=== PATIENT | female | born 1955 | race Caucasian/White ===

== ENCOUNTER 2018-05-04 11:59 | Inpatient (IN) | payer MEDICARE ==
[2018-05-04 15:04] LABS: #Eosinphils 0.1 thou/uL (0.0-0.7); #Lymphocytes 1.6 thou/uL (1.20-3.40); #Monocytes 0.4 thou/uL (0.11-0.59); #Neutrophils 3.3 thou/uL (1.40-6.50); %Basophils 0.6 % (0.0-1.0); %Eosinophils 2.7 % (0.0-10.0); %Lymphocytes 29.4 % (21.0-51.0); %Monocytes 6.9 % (0.0-10.0); %Neutrophils 60.4 % (42.0-75.0); Hemoglobin 11.6 g/dL (12.0-16.0); Mean Corpuscular HGB CONC 33.1 g/dL (32.0-36.0); Mean Corpuscular Hemoglobin 30.6 pg (27.0-31.0); Mean Corpuscular Volume 92.5 fL (78.0-98.0); Mean Platelet Volume 6.5 fL (7.4-10.4); Platelet Count 271 thou/uL (130-400); RBC Distribution Width 12.4 % (11.5-14.5); Red Blood Cell (RBC) Count 3.79 mill/uL (4.20-5.40); White Blood Cell (WBC) Count 5.5 thou/uL (4.8-10.8)
[2018-05-04 15:10] LABS: PTT 27.1 SEC (22.9-36.1); Prothrombin Time 13.3 SEC (12.0-14.7)
--- NOTE | 2018-05-04 15:24 | ULT ---
LEFT LOWER EXTREMITY VENOUS DUPLEX EXAM: Date: 05/04/18 HISTORY: Left leg pain and edema. FINDINGS: Real-time color Doppler evaluation of the left lower extremity was performed from groin to calf. This includes evaluation of the common femoral, superficial and profunda femoral, saphenous, popliteal, a nd posterior tibial veins. This shows some nonocclusive thrombus within the superficial femoral vein in the thigh and incomplete compressibility of the popliteal vein. Flow was not definitely demonstrat ed in the posterior tibial veins. This may have been just related to the calf edema compressing these veins. IMPRESSION: Evidence of deep venous thrombosis with nonocclusive thrombus in the thigh and popliteal region. POS: [facility]
[2018-05-04 15:28] LABS: ALT (SGPT) 17 U/L (8-55); AST (SGOT) 18 U/L (5-34); Albumin 4.3 g/dL (3.4-4.8); Alkaline Phosphatase 68 U/L (40-150); Anion Gap 12 mmol/L (10-20); BUN (Urea Nitrogen) 19 mg/dL (9.8-20.1); Bilirubin, Total 0.4 mg/dL (0.2-1.2); Calc. Creatinine Clearance 0 mL/min (70-130); Calcium 9.5 mg/dL (7.8-10.44); Carbon Dioxide 27 mmol/L (23-31); Chloride 108 mmol/L (98-107); Estimated GFR-MDRD 67; Globulin 2.4 g/dL (2.4-3.5); Glucose 91 mg/dL (80-115); Potassium 4.1 mmol/L (3.5-5.1); Protein, Total 6.7 g/dL (6.0-8.3); Sodium 143 mmol/L (136-145)
[2018-05-04] MEDS ORDERED: Enoxaparin Sodium 80 MG/0.8 ML SYRINGE ONE (18:31)
[2018-05-04] MEDS ORDERED: Acetaminophen 325 MG TAB PO PRN (19:49)
[2018-05-04 20:09] VITALS: BMI 28.0
[2018-05-04] MEDS ORDERED: Temazepam 15 MG CAP PO PRN (20:53)
[2018-05-04] MEDS ORDERED: Acetaminophen 500 MG TAB PO PRN (20:53)
[2018-05-04] MEDS ORDERED: Ondansetron PF 4 MG/2 ML Vial IVP PRN (20:53)
[2018-05-04] MEDS ORDERED: Senokot S 8.6-50 MG TAB PO PRN (20:53)
[2018-05-04] MEDS ORDERED: hydrALAZINE 20 MG/ML VIAL SLOW IVP PRN (20:53)
[2018-05-04] MEDS ORDERED: Ondansetron ODT 4 MG TAB PO PRN (20:53)
[2018-05-04] MEDS: Docusate 100 MG CAP PO SCH (22:00)
[2018-05-04] MEDS: Famotidine 20 MG TAB PO SCH (22:00)
--- NOTE | 2018-05-05 00:40 | HP ---
PRIMARY CARE PROVIDER: Dr. Salazar Robertson. CHIEF COMPLAINT: Left leg swelling. HISTORY OF PRESENT ILLNESS: This is a 63-year-old female, who presents to [facility], complaining of left leg and knee swelling over the last 72 hours. The patient states no specific trauma or injury, but pain in the thigh and behind the knee. The patient with significant history of multiple sclerosis with limited mobility, worsening in the last several months. The history is obtained after discussions with the patient's at the bedside, who provides the majority of the history. The patient has previously received physical therapy, but has not for several months with minimal mobility and mainly sitting at home. The patient also noted with increasing stiffness of her left lower extremity, needing assistance for standing or short distance ambulation. The patient has had a previous deep venous thrombosis of the left lower extremity, on Eliquis 5 mg b.i.d. since 2016. reports no specific fall or direct injury or recent travel history. The patient denies any specific shortness of breath, fever, chills, or cough. The patient denies any blood in the stool or hematuria. reports the patient has been compliant with all of her chronic medication regimen. Her chronic medications including Eliquis twice daily. In the emergency room, the patient underwent general evaluation including Doppler imaging of the left lower extremity showing nonocclusive thrombus in the thigh and popliteal region. The patient received Lovenox subcutaneously and was referred to the hospitalist service for evaluation. PAST MEDICAL HISTORY: 1. Multiple sclerosis with limited mobility. 2. History of DVT in the left lower extremity with chronic anticoagulation with Eliquis. 3. History of rectal prolapse. 4. Anxiety. PAST SURGICAL HISTORY: Status post laparoscopic sacral rectopexy. CURRENT MEDICATIONS: 1. Eliquis 5 mg p.o. b.i.d. 2. Sertraline. 3. Myrbetriq. 4. Colace. A complete medication list will need to be obtained from the family. ALLERGIES: NO KNOWN DRUG ALLERGIES. FAMILY HISTORY: No inheritable diseases per family report. SOCIAL HISTORY: The patient is , accompanied by her and son in the emergency department. No current alcohol, tobacco, or illicit drug use. Ambulates with standby/contact guard assistance with rolling walker with fall risk precautions. REVIEW OF SYSTEMS: CONSTITUTIONAL: Negative for weight loss or gain, ability to conduct usual activities. SKIN: Negative for rash, itching. EYES: Negative for double vision, pain. ENT/MOUTH: Negative for nose bleeding, neck stiffness, pain, tenderness. CARDIOVASCULAR: Negative for palpitations, dyspnea on exertion, orthopnea. RESPIRATORY: Negative for shortness of breath, wheezing, cough, hemoptysis, fever or night sweats. GASTROINTESTINAL: Negative for poor appetite, abdominal pain, heartburn, nausea, vomiting, constipation, or diarrhea. GENITOURINARY: Negative for urgency, frequency, dysuria, nocturia. MUSCULOSKELETAL: Negative for pain, swelling. NEUROLOGIC/PSYCHIATRIC: Negative for anxiety, depression. ALLERGY/IMMUNOLOGIC: Negative for skin rash, bleeding tendency. Otherwise negative except as stated per HPI. PHYSICAL EXAMINATION: VITAL SIGNS: On admission, blood pressure 153/83, pulse 78, respiratory rate 17, temperature 98 degrees Fahrenheit, O2 saturation 99% on room air. GENERAL APPEARANCE: This is a 63-year-old female, smiling, alert, responds to questions, in no acute distress. HEENT: Pupils are equal, round, reactive to light and accommodation. Extraocular muscles are intact. No scleral icterus. No conjunctival injection. Nares patent. OP is clear. Teeth in fair repair. NECK: Supple. No cervical adenopathy. No thyromegaly. No carotid bruits. No JVD appreciated. Cervical spine with full active and passive range of motion. No meningeal signs noted. CHEST: Lungs are clear to auscultation bilaterally. CARDIOVASCULAR: S1 and S2 without noted murmur, rub, or gallop. ABDOMEN: Rounded, soft, nontender, and nondistended. Bowel sounds are positive in all 4 quadrants. There is no hepatosplenomegaly. No abdominal bruits. No rebound or guarding appreciated. EXTREMITIES: Left lower extremity with edema to the proximal thigh, mid thigh, peripatellar region and tibial region. Positive pitting edema below the knee. Mild tenderness to palpation in the popliteal region. Pulses palpable distally at the dorsalis pedis, posterior tibial, and popliteal arteries bilaterally. Contractures noted with sustained plantar flexion of the left ankle. Right lower extremity moves freely on command. NEUROLOGIC: Cranial nerves 2 through 12 are grossly intact. Please see under musculoskeletal for the rest of the neuro exam. The patient is not observed ambulatory during this exam. PERTINENT LAB AND X-RAY FINDINGS: Complete metabolic profile within normal limits. PT 13.3, INR 1.0, PTT 27.1. CBC showed a white blood cell count of 5.5, hemoglobin 12, hematocrit 35, platelet count 271 with normal differential. Left lower extremity vascular ultrasound dated 05/04/2018 showed nonocclusive thrombus in the superficial femoral and popliteal vein. ASSESSMENT AND PLAN: 1. Acute left lower extremity deep venous thrombosis. The patient will be admitted to the medical floor. The patient with apparent Eliquis failure with recurrent deep venous thrombosis of the left lower extremity. We will continue Lovenox 1 mg/kg subcutaneously q.12 hours. Consult Hematology Service for evaluation given apparent Eliquis failure. Check stool guaiac. Suspect the patient's presentation also consistent with limited mobility in the context of multiple sclerosis. 2. Multiple sclerosis. Limited mobility as stated previously. We will confirm home medication regimen and monitor clinically. We will obtain Physical Therapy consult for functional assessment. 3. Chronic anticoagulation. We will consult Hematology Service for recommendations regarding choice of anticoagulation in the context of an apparent Eliquis failure. Serial CBC monitoring. Check stool guaiacs. 4. Anxiety. Confirm home antianxiety medication regimen. Restoril 15 mg p.o. at bedtime. 5. Prophylaxis. SCDs held due to an acute deep venous thrombosis of the left lower extremity. Pepcid 20 mg p.o. b.i.d. Physical Therapy assessment for functional ability in the a.m.. CODE STATUS: Full. Surrogate medical decision maker is the patient's . Job ID: [id number]
[2018-05-05 08:03] LABS: Anion Gap 14 mmol/L (10-20); BUN (Urea Nitrogen) 13 mg/dL (9.8-20.1); Calc. Creatinine Clearance 93 mL/min (70-130); Calcium 8.9 mg/dL (7.8-10.44); Carbon Dioxide 22 mmol/L (23-31); Chloride 110 mmol/L (98-107); Estimated GFR-MDRD 72; Glucose 100 mg/dL (80-115); Sodium 142 mmol/L (136-145)
[2018-05-05 08:25] LABS: Band 1 % (5-11); Eosinophils 3 % (0-10); Hemoglobin 11.1 g/dL (12.0-16.0); Lymphocytes 19 % (21-51); MDiff Complete? YES; Mean Corpuscular HGB CONC 32.7 g/dL (32.0-36.0); Mean Corpuscular Hemoglobin 29.9 pg (27.0-31.0); Mean Corpuscular Volume 91.3 fL (78.0-98.0); Mean Platelet Volume 6.4 fL (7.4-10.4); Monocytes 8 % (0-10); Neutrophil 69 % (42-75); Platelet Count 276 thou/uL (130-400); RBC Distribution Width 12.3 % (11.5-14.5); Red Blood Cell (RBC) Count 3.71 mill/uL (4.20-5.40); White Blood Cell (WBC) Count 4.5 thou/uL (4.8-10.8)
[2018-05-05] MEDS: Famotidine 20 MG TAB PO SCH ×2 (08:46→21:40)
[2018-05-05] MEDS: Docusate 100 MG CAP PO SCH ×2 (08:46→21:39)
[2018-05-05] MEDS: Enoxaparin Sodium 80 MG/0.8 ML SYRINGE SC SCH ×2 (08:55→21:40)
--- NOTE | 2018-05-05 11:28 | PDOC.PN ---
- Subjective Encounter Start Date: 05/05/18 Encounter Start Time: 11:25 Subjective: f/u for acute LLE DVT tx currently with Lovenox. Apparently failed therapy -: with Eliquis. Some LLE pain but tolerable. - Objective Resuscitation Status - Order Detail: 05/04/18 17:20 Resuscitation Status Routine Resuscitation Status: FULL: Full Resuscitation MAR Reviewed: Yes Vital Signs & Weight: Vital Signs (12 hours) Temp Pulse Resp BP Pulse Ox 05/05/18 08:53 98.1 F 85 18 167/76 H 96 05/05/18 04:00 98.1 F 107 H 18 139/82 95 Weight Weight 184 lb 11.958 oz I&O: 05/04/18 05/05/18 05/06/18 06:59 06:59 06:59 Intake Total 100 Balance 100 Result Diagrams: 05/05/18 07:22 05/05/18 07:22 Additional Labs: Laboratory Tests 05/04/18 14:50 Hgb 11.6 L Phys Exam - Physical Examination Constitutional: NAD HEENT: PERRLA, sclera anicteric, oral pharynx no lesions Neck: no nodes, no JVD, supple, full ROM Respiratory: no wheezing, no rales, no rhonchi, clear to auscultation bilateral S1, S2 Cardiovascular: RRR, no significant murmur, no rub, gallop Gastrointestinal: soft, non-tender, no distention, positive bowel sounds LLE edema Musculoskeletal: pulses present Neurological: normal sensation, moves all 4 limbs Psychiatric: A&O x 3 Skin: normal turgor, cap refill <2 seconds Dx/Plan (1) Deep vein thrombosis (DVT) of left lower extremity Code(s): I82.402 - ACUTE EMBOLISM AND THOMBOS UNSP DEEP VEINS OF L LOW EXTREM Status: Acute Qualifiers: Affected thrombotic vein of extremity: femoral Chronicity: acute Qualified Code(s): I82.412 - Acute embolism and thrombosis of left femoral vein Comment: Continue Lovenox 80mg sc BID, consult Hematology regarding apparent Eliquis failure, pain control, elevate LLE (2) Multiple sclerosis Code(s): G35 - MULTIPLE SCLEROSIS Status: Chronic (3) Chronic anticoagulation Code(s): Z79.01 - PECAN SHELLER (CURRENT) USE OF ANTICOAGULANTS Status: Chronic Comment: See above, continue Lovenox acutely, Hematology consult pending, stool hemoccult pending (4) Anxiety Code(s): F41.9 - ANXIETY DISORDER, UNSPECIFIED Status: Chronic Comment: Resume Sertraline - Plan plan discussed w/ family, foster care social worker Stable currently -: Continue Lovenox 80mg sc BID -: Hematology consult pending -: Stool hemoccult pending -: Rehab screening * AM lab: H/H with plt
--- NOTE | 2018-05-05 15:37 | CON ---
DATE OF CONSULTATION: REASON FOR CONSULT: DVT. HISTORY OF PRESENT ILLNESS: Ms. Rothman is a pleasant 63-year-old female with a history of multiple sclerosis and immobility, who was originally diagnosed with a DVT of the left lower extremity in October of 2015. She has been taking Eliquis 5 mg b.i.d. since that time and has seen Dr. Jimenez in the past. She is managed by Dr. Robertson. She has been in her usual state of health until the holidays when her insurance changed and then physical therapy was stopped. She had an increase in weight over the holidays. Over the past week, her left lower extremity developed swelling and bruising of the thigh and knee. She has significant pain. She was brought to the emergency room yesterday for evaluation. She had a venous Doppler ultrasound, which showed a nonocclusive thrombus within the superficial femoral vein in the thigh and an incomplete compressibility of the popliteal vein. Flow was not definitively demonstrated in the posterior tibial veins, possibly from calf edema. The patient denies any trauma or injury to the left leg. She denies any chest pain or shortness of breath. No bleeding. PAST MEDICAL HISTORY: 1. Multiple sclerosis. 2. DVT of the left lower extremity. 3. History of rectal prolapse and repair. 4. Anxiety. PAST SURGICAL HISTORY: Laparoscopic sacral rectopexy. ALLERGIES: NO KNOWN DRUG ALLERGIES. HOME MEDICATIONS: 1. Eliquis 5 mg b.i.d. 2. Zoloft 100 mg daily. 3. Myrbetriq 50 mg daily. 4. Tizanidine b.i.d. FAMILY HISTORY: No history of hematological disorder. SOCIAL HISTORY: , has 3 children. Lives with her spouse. Limited mobility, most of the time spent in the bed or the chair. No alcohol or illicit drug use. REVIEW OF SYSTEMS: A 10-point review of systems is negative except for noted in HPI. PHYSICAL EXAMINATION: VITAL SIGNS: Temperature is 97.7, pulse is 92, respiratory rate is 18, BP is 151/79, and she is 95% on room air. GENERAL: Well-developed, well-nourished female, in no acute distress. HEENT: Normocephalic and atraumatic. Pupils are equal and reactive to light. NECK: Supple. CV: Regular rate and rhythm. LUNGS: Clear. ABDOMEN: Soft and nontender. Bowel sounds are positive. EXTREMITIES: Her left lower extremity has bruising mid thigh to mid calf, multicolored and evolving. Pulses are palpable. SKIN: There is no rash. NEUROLOGIC: Deferred. PSYCH: The patient is alert, oriented, and appropriate. PERTINENT LABS AND X-RAYS: Current WBCs are 4.5, hemoglobin 11.1, hematocrit 33.9, platelet count 276,000, 69% neutrophils, and 19% lymphocytes. PT 13.3, INR is 1.0, and PTT is 27.1. Sodium is 142, potassium is 4.0, chloride is 110, CO2 is 22, BUN is 13, creatinine is 0.80, calcium is 8.9, bilirubin is 0.4, AST is 18, ALT is 17, alkaline phosphatase is 68, serum total protein is 6.7, albumin is 4.3, and globulin is 2.4. Radiology per HPI. ASSESSMENT: 1. New nonocclusive thrombus of the superficial femoral vein with bruising and swelling of the left lower extremity. 2. History of left lower extremity deep venous thrombosis, currently on Eliquis. 3. Limited mobility secondary to multiple sclerosis. DISCUSSION: The patient's Eliquis is currently held and she is on therapeutic Lovenox, would continue for the time being. We will discuss with Dr. Jimenez, further oral anticoagulation options. Thank you for the consult. Job ID: [id number]
[2018-05-05] MEDS: tiZANidine HCl 4 MG TAB PO SCH (21:39)
[2018-05-06 06:13] LABS: Hemoglobin 11.5 g/dL (12.0-16.0); Platelet Count 270 thou/uL (130-400)
[2018-05-06] MEDS: Famotidine 20 MG TAB PO SCH ×2 (09:02→20:06)
[2018-05-06] MEDS: Enoxaparin Sodium 80 MG/0.8 ML SYRINGE SC SCH ×2 (09:02→20:07)
[2018-05-06] MEDS: Docusate 100 MG CAP PO SCH ×2 (09:02→20:06)
[2018-05-06] MEDS: tiZANidine HCl 4 MG TAB PO SCH ×2 (09:02→20:08)
--- NOTE | 2018-05-06 14:19 | PDOC.PN ---
- Subjective Encounter Start Date: 05/06/18 Encounter Start Time: 14:10 Subjective: f/u for LLE DVT on prior Eliquis and hx of MS with limited mobility. -: Receiving Lovenox without complications. Planning on IVC -: filter placement then transition off all anticoag. - Objective Resuscitation Status - Order Detail: 05/04/18 17:20 Resuscitation Status Routine Resuscitation Status: FULL: Full Resuscitation MAR Reviewed: Yes Vital Signs & Weight: Vital Signs (12 hours) Temp Pulse Resp BP Pulse Ox 05/06/18 12:17 97.7 F 74 18 100/63 95 05/06/18 09:00 94 L 05/06/18 07:28 97.7 F 85 21 H 139/82 94 L 05/06/18 04:01 98.1 F 108 H 16 144/80 H 93 L Weight Weight 184 lb 11.958 oz I&O: 05/05/18 05/06/18 05/07/18 06:59 06:59 06:59 Intake Total 100 1300 Balance 100 1300 Result Diagrams: 05/06/18 05:17 05/05/18 07:22 Additional Labs: Laboratory Tests 05/04/18 14:50 Hgb 11.6 L Phys Exam - Physical Examination Constitutional: NAD smiling, alert HEENT: PERRLA, sclera anicteric, oral pharynx no lesions Neck: no nodes, no JVD, supple, full ROM Respiratory: no wheezing, no rales, no rhonchi, clear to auscultation bilateral S1, S2 Cardiovascular: RRR, no significant murmur, no rub, gallop Gastrointestinal: soft, non-tender, no distention, positive bowel sounds LLE edema, mild improvement, + ecchymosis Musculoskeletal: pulses present, edema present Neurological: moves all 4 limbs Skin: normal turgor, cap refill <2 seconds Dx/Plan (1) Deep vein thrombosis (DVT) of left lower extremity Code(s): I82.402 - ACUTE EMBOLISM AND THOMBOS UNSP DEEP VEINS OF L LOW EXTREM Status: Acute Qualifiers: Affected thrombotic vein of extremity: femoral Chronicity: acute Qualified Code(s): I82.412 - Acute embolism and thrombosis of left femoral vein Comment: Continue Lovenox 80mg sc BID, current plan for IVC filter placement then transition off Lovenox (2) Multiple sclerosis Code(s): G35 - MULTIPLE SCLEROSIS Status: Chronic Comment: Limited mobility , Rehab screening in progress, likely progressive clinical decline (3) Chronic anticoagulation Code(s): Z79.01 - DETENTION (CURRENT) USE OF ANTICOAGULANTS Status: Chronic Comment: See above, continue Lovenox acutely, Hematology consult pending, stool hemoccult negative, likely will proceed with IVC filter placement (4) Anxiety Code(s): F41.9 - ANXIETY DISORDER, UNSPECIFIED Status: Chronic Comment: Resume Sertraline - Plan plan discussed w/ family, PT/OT, director social Stable currently -: Plan for IVC filter placement -: PT for mobilization -: Rehab screening in progress -: Lab: Stool hemoccult neg * Likely transition to rehab in 24-48h
[2018-05-07] MEDS ORDERED: ISOVUE-370 76%-LOCM 1 ML ONE (10:05)
[2018-05-07] MEDS: Famotidine 20 MG TAB PO SCH ×2 (12:23→20:08)
[2018-05-07] MEDS: Enoxaparin Sodium 80 MG/0.8 ML SYRINGE SC SCH ×2 (12:23→19:15)
[2018-05-07] MEDS: Docusate 100 MG CAP PO SCH ×2 (12:23→20:08)
[2018-05-07] MEDS: tiZANidine HCl 4 MG TAB PO SCH ×2 (12:23→20:08)
--- NOTE | 2018-05-07 13:59 | CT ---
CT ABDOMEN WITH CONTRAST: INDICATIONS: History of IVC filter placement. FINDINGS: No IVC filter is present. There is bibasilar atelectasis. There is a calcified granuloma in the right lower lobe. There is a moderate sized hiatal hernia. There are numerous gallstones filling the gallbladder. The pancreas a nd adrenal glands are normal appearing. The left kidney is normal appearing. The spleen is normal a ppearing. No free fluid or enlarged lymph node is evident. There is gas present within the subcutaneous fat of the anterior abdominal wall, likely related to injections. There are injection granulomata overlying the gluteal regions. There are remote appearing compressio n abnormalities involving L4 and L3. There is stable mild compression abnormality involving T12 when compared to a chest radiograph dated 11/24/2015. IMPRESSION: 1. No inferior vena cava filter identified. The anatomical configuration of the inferior vena cava appears within normal limits. There is no evidence of extravasation. 2. Cholelithiasis. 3. Moderate hiatal hernia. 4. Remote compression abnormalities of L4, L3, and T12. POS: [facility]
--- NOTE | 2018-05-07 16:33 | CON ---
DATE OF CONSULTATION: 05/07/2018 PRIMARY CARE PHYSICIAN: Salazar Robertson MD CHIEF COMPLAINT: Left leg swelling. HISTORY OF PRESENT ILLNESS: The patient is a 63-year-old woman with multiple sclerosis. About 2 or 3 years ago, she had a left lower extremity DVT and has been maintained on Eliquis. She recently presented with swelling of her left leg associated with bruising around the level of the thigh and the knee without any antecedent trauma. She presented to the emergency room, ultrasonography of that leg demonstrated nonocclusive thrombus in the superficial vein with incomplete compressibility of the popliteal vein. There was no other venous Dopplers here for direct comparison. The patient denies any known history of pulmonary emboli and denies any present history of chest pain or shortness of breath. PAST MEDICAL HISTORY: Significant for multiple sclerosis, history of rectal prolapse, and previous left lower extremity DVT. HOME MEDICATIONS: 1. Eliquis 5 mg p.o. b.i.d. 2. Sertraline. 3. Myrbetriq. 4. Colace. 5. Her Eliquis has been stopped and she has been started on 80 mg b.i.d. of Lovenox. REVIEW OF SYSTEMS: Negative for any chest pain or shortness of breath. It is positive for worsening problems with mobility with flexion contractures developing in her left arm and leg. PHYSICAL EXAMINATION: GENERAL: She is in no distress. VITAL SIGNS: Height 5 feet 8 inches and weight is 184 and 3/4 pounds. Heart rate is 89, blood pressure is 129/83, temperature is 97.6, and room air O2 saturations are 97%. ABDOMEN: Soft and nontender. EXTREMITIES: She has extensive bruising with associated swelling of the left thigh and knee, but no overt swelling of the left calf. She has footdrop type contracture of the left foot and the knee is a little bit stiff as well. Her venous Doppler is as described above. LABORATORY DATA: On laboratory exam, her hemoglobin is 11.1, which is similar to the hemoglobins that she has had going back as far as December of 2012. Her electrolytes were normal. Creatinine is 0.80 and albumin is 4.3. IMPRESSION AND RECOMMENDATIONS: I had a long talk with the patient and her . It is very difficult to know whether this nonocclusive thrombus seen on Doppler represents new thrombus or it is just simply residual from the recanalized deep venous thrombosis that she was known to have had previously. The spontaneous bruising of her thigh; however, would suggest a contraindication to anticoagulation. Even if the development of a thrombus does not represent a failure of anticoagulation. There is no clear-cut guidance as to the appropriateness of vena cava filtration in this setting as a prophylactic measure, but it is certainly quite commonly done. I am going to check a CT scan of her abdomen to assess the size of her vena cava and location of her renal veins with the anticipation of holding her Lovenox after tonight's dose and placing a vena cava filter that will be permanent in the morning. Job ID: [id number]
--- NOTE | 2018-05-07 22:13 | PDOC.PN ---
- Subjective Encounter Start Date: 05/07/18 Encounter Start Time: 17:00 Doing well. No complaints. - Objective Resuscitation Status - Order Detail: 05/04/18 17:20 Resuscitation Status Routine Resuscitation Status: FULL: Full Resuscitation Vital Signs & Weight: Vital Signs (12 hours) Temp Pulse Resp BP BP Pulse Ox 05/07/18 19:16 98.8 F 89 20 130/74 94 L 05/07/18 12:21 97.6 F 89 20 129/83 97 Weight Weight 184 lb 11.958 oz I&O: 05/06/18 05/07/18 05/08/18 06:59 06:59 06:59 Intake Total 1300 800 700 Output Total 1500 Balance 1300 -700 700 Result Diagrams: 05/06/18 05:17 05/05/18 07:22 Phys Exam - Physical Examination Constitutional: NAD Respiratory: no wheezing, no rales, no rhonchi, clear to auscultation bilateral Cardiovascular: RRR, no significant murmur, no rub Gastrointestinal: soft, non-tender, no distention, positive bowel sounds Musculoskeletal: no edema Dx/Plan (1) Deep vein thrombosis (DVT) of left lower extremity Code(s): I82.402 - ACUTE EMBOLISM AND THOMBOS UNSP DEEP VEINS OF L LOW EXTREM Status: Acute Qualifiers: Affected thrombotic vein of extremity: femoral Chronicity: acute Qualified Code(s): I82.412 - Acute embolism and thrombosis of left femoral vein Comment: Continue Lovenox 80mg sc BID, current plan for IVC filter placement then transition off Lovenox (2) Anxiety Code(s): F41.9 - ANXIETY DISORDER, UNSPECIFIED Status: Chronic Comment: Resume Sertraline (3) Chronic anticoagulation Code(s): Z79.01 - GROUP HOME (CURRENT) USE OF ANTICOAGULANTS Status: Chronic Comment: See above, continue Lovenox acutely, Hematology consult pending, stool hemoccult negative, likely will proceed with IVC filter placement (4) Multiple sclerosis Code(s): G35 - MULTIPLE SCLEROSIS Status: Chronic Comment: Limited mobility , Rehab screening in progress, likely progressive clinical decline - Plan * IVC filter in am. * Discussed with patient and her . Considering rehab.
[2018-05-08] MEDS ORDERED: CEFAZOLIN 1 GM VIAL ONE (07:55)
[2018-05-08] MEDS: Famotidine 20 MG TAB PO SCH (10:11)
[2018-05-08] MEDS: tiZANidine HCl 4 MG TAB PO SCH (10:11)
[2018-05-08] MEDS: Docusate 100 MG CAP PO SCH (10:11)
[2018-05-08] MEDS ORDERED: Iopamidol 370 76% 50 ML VIAL FS ONE (11:34)
--- NOTE | 2018-05-08 12:56 | OP ---
DATE OF PROCEDURE: 05/08/2018 PROCEDURE PERFORMED: OPTEASE inferior vena cava filter placement after ultrasonographic right femoral venous access and venacavography. PREOPERATIVE DIAGNOSIS: History of deep venous thrombosis with contraindication to anticoagulation. POSTOPERATIVE DIAGNOSIS: History of deep venous thrombosis with contraindication to anticoagulation. ANESTHESIA: 1% lidocaine, local anesthesia. INDICATIONS: The patient is a 63-year-old woman with multiple sclerosis who is becoming increasingly poorly mobile. She has been maintained on anticoagulation for DVT, but recently presented with spontaneous hemorrhage in the same leg that had previously been involved with her DVT. Ultrasonography demonstrated presence of nonocclusive thrombus in the superficial femoral vein and poor compressibility of the popliteal vein. She is now taken to the cheesemaking laborer for placement of a vena cava filter. FINDINGS: The right renal vein was identified by probing and was at the inferior margin of the L1. The left renal vein was identified by venacavography and confirmed by probing and was at the midbody of L2 and the filter was placed with the superior tip at the inferior margin of L2. A total of 24 mL of Isovue contrast was used. Fluoroscopy time was 8.2 minutes. NARRATIVE REPORT: After informed consent was obtained, the patient was placed in the supine position on the cheesemaking laborer table. The groins were prepped and draped in sterile fashion. Ultrasonography was used to identify the femoral vessels and confirm compressibility of the left common femoral vein. The skin and subcutaneous tissue at that point were infiltrated with 1% lidocaine to achieve local anesthesia. With the aid of ultrasonography, the right common femoral vein was cannulated with a large-bore needle just medial to the palpable femoral pulse. There was good blood return from the needle. The guide wire was placed and the needle removed and positioning was confirmed by fluoroscopy. A small skin gildardo was made and the dilator and sheath were inserted over the wire. Under fluoroscopy, the tip of the catheter was positioned just below L2 and contrast was injected. The confluence of the left renal vein with the vena cava was readily identified. Two other injections were made but failed to clearly identify the confluence of the right renal vein. Using a ANGELINE catheter and wire, the vena cava was probed and the left and right renal veins were identified. The wire and ANGELINE catheter were removed and the tip of the introducer sheath positioned at the inferior margin of L2. The filter was advanced through the sheath and then the sheath withdrawn to deploy the vena cava filter. The sheath was removed and hemostasis achieved with the use of direct pressure. The patient was then transported to the recovery area in good condition. Job ID: [id number]
[2018-05-08 15:31] VITALS: BP 126/78; TEMP 98.3
== END 2018-05-08 16:52 | DRG 254 ==
LOC: ERS 11:59 → T4-B 17:06
PROVIDERS: ADMIT Family Medicine; ATTEND Family Medicine
PROC: 06H03DZ Insertion of Intraluminal Device into Inferior Vena Cava, Percutaneous Approach (ICD-10-PCS; principal; 2018-05-08)
DX: I82.412 Acute embolism and thrombosis of left femoral vein (principal); I82.432 Acute embolism and thrombosis of left popliteal vein; G35 Multiple sclerosis; Z86.718 Personal history of other venous thrombosis and embolism; Z79.01 Long term (current) use of anticoagulants; F41.9 Anxiety disorder, unspecified
CPT/HCPCS: 36415; 37191; 74160; 80048; 80053; 85007; 85014; 85018; 85025; 85027; 85049; 85610; 85730; 96372; C1769; J0690; J1644; J1650; Q9966; Q9967

== ENCOUNTER 2020-03-24 11:19 | Emergency (ER) | payer MEDICARE ==
--- NOTE | 2020-03-24 12:55 | ULT ---
DOPPLER VENOUS ULTRASOUND LEFT UPPER EXTREMITY INDICATION: Left arm swelling and edema TECHNIQUE: Grayscale, color Doppler spectral Doppler images were obtained of the left internal jugula r vein, left subclavian vein, left axillary vein, left brachial vein, left basilic vein, the left ulnar vein and the left radial vein. FINDINGS: There is normal compression, flow and augmentation seen within the venous structures of the left upper extremity. The left axillary vein was not well assessed due to patient's inability to abduct the arm. There is diffuse subcutaneous edema within the left forearm IMPRESSION: No evidence of venous thrombosis within the left upper extremity.
[2020-03-24 13:24] LABS: #Basophils 0.1 thou/uL (0.0-0.2); #Eosinphils 0.2 thou/uL (0.0-0.7); #Lymphocytes 1.4 thou/uL (1.20-3.40); #Monocytes 0.7 thou/uL (0.11-0.59); #Neutrophils 4.4 thou/uL (1.40-6.50); %Eosinophils 2.9 % (0.0-10.0); %Lymphocytes 20.2 % (21.0-51.0); %Monocytes 10.5 % (0.0-10.0); %Neutrophils 65.3 % (42.0-75.0); Hemoglobin 13.2 g/dL (12.0-16.0); Mean Corpuscular HGB CONC 32.5 g/dL (32.0-36.0); Mean Corpuscular Hemoglobin 30.3 pg (27.0-31.0); Mean Corpuscular Volume 93.2 fL (78.0-98.0); Mean Platelet Volume 6.6 fL (7.4-10.4); Platelet Count 223 thou/uL (130-400); RBC Distribution Width 12.3 % (11.5-14.5); Red Blood Cell (RBC) Count 4.36 mill/uL (4.20-5.40); White Blood Cell (WBC) Count 6.8 thou/uL (4.8-10.8)
[2020-03-24 13:31] LABS: INR-International Normal Ratio 1.1; PTT 26.6 sec (22.9-36.1); Prothrombin Time 14.3 sec (12.0-14.7)
[2020-03-24 13:48] LABS: ALT (SGPT) 16 U/L (8-55); AST (SGOT) 17 U/L (5-34); Albumin 3.7 g/dL (3.4-4.8); Alkaline Phosphatase 96 U/L (40-110); Anion Gap 15 mmol/L (10-20); BUN (Urea Nitrogen) 19 mg/dL (9.8-20.1); Bilirubin, Total 0.4 mg/dL (0.2-1.2); Calc. Creatinine Clearance 0 mL/min (70-130); Calcium 8.5 mg/dL (7.8-10.44); Carbon Dioxide 26 mmol/L (23-31); Chloride 106 mmol/L (98-107); Globulin 2.6 g/dL (2.4-3.5); Glucose 78 mg/dL (80-115); Potassium 4.1 mmol/L (3.5-5.1); Protein, Total 6.3 g/dL (6.0-8.3); Sodium 143 mmol/L (136-145)
--- NOTE | 2020-03-24 15:57 | CT ---
CHEST CT SCAN WITH IV CONTRAST: Date: 03/24/2020 HISTORY: Left arm swelling, subclavian artery occlusion. FINDINGS: Nodularity of both right and left lobes of the thyroid gland. There is no evidence for left subclavia n artery occlusion, although potential stenotic changes would be poorly evaluated on this non CT doretha ogram CT. Inspiration is poor with some vascular crowding bilaterally, particularly in the lower lung zones. Small to moderate hiatal hernia. Old granuloma calcification changes within the chest. No med iastinal mass or adenopathy. No pleural effusion. No evidence for left axillary adenopathy or other m ass. Evidence for cholelithiasis, although the gallbladder is incompletely seen. IMPRESSION: 1. No evidence for left subclavian artery occlusion, although less severe stenotic changes would be difficult to exclude for on this non-CTA exam. 2. Small to moderate hiatal hernia. 3. Moderate thyroid nodularity. 4. Cholelithiasis without overt acute cholecystitis. 5. No evidence for axillary adenopathy. POS: OFF
== END 2020-03-24 15:40 | disposition home or self-care (01) ==
LOC: ERS 11:19
DX: L03.114 Cellulitis of left upper limb (principal); Z86.718 Personal history of other venous thrombosis and embolism; Z79.01 Long term (current) use of anticoagulants; Z79.899 Other long term (current) drug therapy
CPT/HCPCS: 36415; 71260; 80053; 83880; 85025; 85610; 85730